=== PATIENT | female | born 1980 | race African-American/Black ===

== ENCOUNTER 2023-10-15 15:43 | Outpatient (CLI) | payer BC | END 2023-10-15 15:44 | disposition home or self-care (01) | LOC: CSHLAB 15:43 | PROVIDERS: ATTEND Obstetrics & Gynecology | DX: Z01.812 Encounter for preprocedural laboratory examination (principal); N92.0 Excessive and frequent menstruation with regular cycle | CPT/HCPCS: 84703; 85027; 86850; 86900; 86901 ==

== ENCOUNTER 2023-10-19 05:50 | Day surgery (SDC) | payer BC ==
[2023-10-15 15:58] VITALS: BMI 37.8
[2023-10-15 16:39] LABS: Hematocrit 34.4 % (34.9-44.5); Mean Corpuscular HGB CONC 34.9 g/dL (32.0-36.0); Mean Corpuscular Hemoglobin 26.7 pg (27.0-33.0); Mean Corpuscular Volume 76.4 fL (81.6-98.3); Mean Platelet Volume 10.3 fL (7.4-10.4); Platelet Count 311 10x3/uL (150-450); RBC Distribution Width 15.7 % (11.5-14.5); White Blood Cell (WBC) Count 6.1 10x3/uL (3.5-10.5)
[2023-10-15 16:43] LABS: BHCG - Serum Negative (NEGATIVE); Pregs Control Background? CLEAR/WHITE (CLR/WHITE); Pregs Control Bar Appear? YES (CONTROL BAR)
[2023-10-19] MEDS ORDERED: CeleCOXIB 100 MG CAP ONE (06:14)
[2023-10-19] MEDS ORDERED: Famotidine/PF 20 mg/2ml Vial ONE (06:15)
[2023-10-19] MEDS ORDERED: Gabapentin 300 MG CAP ONE (06:15)
[2023-10-19] MEDS ORDERED: metroNIDAZOLE 500 MG (100 mL) BAG ONE (06:15)
[2023-10-19] MEDS ORDERED: EPINEPHrine 1 MG/ML VIAL ONE (06:52)
[2023-10-19] MEDS ORDERED: Bupivacaine PF 0.5% 30 ML VIAL ONE (06:53)
[2023-10-19] MEDS ORDERED: Midazolam HCl 2 mg/2 ml Vial ONE ×2 (07:07→07:10)
[2023-10-19] MEDS ORDERED: Scopolamine 1 mg/72 hour Patch ONE (07:07)
[2023-10-19] MEDS ORDERED: PROPOFOL 20 ML ONE (07:20)
[2023-10-19] MEDS ORDERED: fentaNYL 50 mcg/mL 1 mL Vial ONE (07:20)
[2023-10-19] MEDS ORDERED: Rocuronium Bromide 10 MG/ML (10ML VIAL) ONE (07:21)
[2023-10-19] MEDS ORDERED: Lidocaine 2% PF 5 ML VIAL ONE (07:21)
[2023-10-19] MEDS ORDERED: HYDROmorphone 0.5 MG/0.5 ML SYRINGE ONE (07:24)
[2023-10-19] MEDS ORDERED: Promethazine HCl 25 MG/ML VIAL ONE (07:25)
[2023-10-19] MEDS ORDERED: Sevoflurane 250 ML INH ANEST BOTTLE ONE (07:25)
[2023-10-19] MEDS ORDERED: CEFAZOLIN 2 GM VIAL ONE (07:30)
[2023-10-19] MEDS ORDERED: ePHEDrine Sulfate 50 MG/10 ML VIAL ONE (08:06)
[2023-10-19] MEDS ORDERED: Dexamethasone 20 MG/5 ML VIAL ONE (08:15)
[2023-10-19] MEDS ORDERED: Ketorolac Tromethamine 30 MG (1 mL) VIAL ONE (08:15)
[2023-10-19] MEDS ORDERED: Ondansetron PF 4 MG/2 ML Vial ONE (08:15)
== END 2023-10-19 12:10 | disposition home or self-care (01) ==
LOC: CSHSDC 05:50
PROVIDERS: ATTEND Obstetrics & Gynecology
PROC: 0UT94ZZ Resection of Uterus, Percutaneous Endoscopic Approach (ICD-10-PCS; principal; 2023-10-19)
PROC: 0UT74ZZ Resection of Bilateral Fallopian Tubes, Percutaneous Endoscopic Approach (ICD-10-PCS; principal; 2023-10-19)
DX: D25.0 Submucous leiomyoma of uterus (principal); N80.03 Adenomyosis of the uterus; N72 Inflammatory disease of cervix uteri; N88.8 Other specified noninflammatory disorders of cervix uteri; N87.9 Dysplasia of cervix uteri, unspecified; D64.9 Anemia, unspecified; E66.9 Obesity, unspecified; F41.9 Anxiety disorder, unspecified; K66.0 Peritoneal adhesions (postprocedural) (postinfection); Z79.899 Other long term (current) drug therapy; Z68.37 Body mass index [BMI] 37.0-37.9, adult
CPT/HCPCS: 84703; 85027; 86850; 86900; 86901; 88307; C9250; J0171; J0665; J1100; J1170; J1885; J2001; J2250; J2405; J2550; J2704; J3010; S0028